=== PATIENT | female | born 1985 | race Caucasian/White ===

== ENCOUNTER 2016-08-25 11:23 | Emergency (ER) | payer SELFPAY ==
[~2016-08-25] VITALS: Ht 167.6 cm; Wt 70.3 kg
[2016-08-25] MEDS ORDERED: IV NS 0.9% 500 ML IV ONE (11:43)
[2016-08-25] MEDS ORDERED: IV SET PRIMARY 1 EA INFUS.SET MC ONE (11:43)
[2016-08-25 11:54] LABS: HEMATOCRIT 39 % (33-45); HEMOGLOBIN 13.1 g/dL (11.5-14.8); MEAN CORPUSCULAR HEMOGLOBIN 29 PG (26.0-33.0); MEAN CORPUSCULAR HGB CONC 34 g/dl (31.0-36.0); MEAN CORPUSCULAR VOLUME 86 fL (82-100); PLATELET COUNT (AUTO) 302 /CMM (150-450); RED BLOOD CELL COUNT(AUTO) 4.49 MIL/uL (4.0-5.2); WHITE BLOOD COUNT (AUTO) 12.8 K/uL (4.3-11.0)
[2016-08-25 12:00] LABS: CALCIUM, SERUM 8.3 mg/dL (8.5-10.1); CREATININE 0.7 mg/dL (0.6-1.3); POTASSIUM 3.6 mmol/L (3.5-5.1)
[2016-08-25] MEDS ORDERED: IV NS 0.9% 500 ML BAG IV ONE (12:00)
[2016-08-25 12:06] LABS: ALBUMIN 3.1 g/dL (3.4-5.0); BILIRUBIN,DIRECT 0.1 mg/dL (0.0-0.2); BILIRUBIN,TOTAL 0.3 mg/dL (0.2-1.0); INDIRECT BILIRUBIN 0.2 mg/dL (0.0-1.1); TOTAL PROTEIN, SERUM 7.6 g/dL (6.4-8.2)
[2016-08-25 12:23] LABS: BASOPHILS % (AUTO) 0.3 % (0.0-2.0); DIFF TOTAL % 100 %; EOSINOPHILS % (AUTO) 0.1 % (0.0-6.0); LYMPHOCYTES % (AUTO) 17.1 % (20.0-44.0); MONOCYTES % (AUTO) 3.7 % (2.0-12.0); NEUTROPHILS % (AUTO) 78.8 % (43.0-81.0)
[2016-08-25 12:48] VITALS: BP 168/53
== END 2016-08-25 13:06 | disposition short-term general hospital (02) ==
LOC: ER 11:26
DX: O26.893 Other specified pregnancy related conditions, third trimester (principal); R52 Pain, unspecified; Z3A.38 38 weeks gestation of pregnancy
CPT/HCPCS: 36415; 76805; 80048; 80076; 85025; 99285; A4606; J7040; Z7610